=== PATIENT | male | born 2000 | race Caucasian/White ===

== ENCOUNTER 2023-02-26 13:59 | Emergency (ER) | payer MEDICAID, SELFPAY ==
--- NOTE | 2023-02-26 14:07 | XR_ITS ---
PROCEDURE INFORMATION: Exam: XR Left Foot Exam date and time: 02/26/2023 2:09 PM Age: 22 years old Clinical indication: Injury or trauma; Other: Small ladder fell on his foot one week ago; Blunt trauma; Left; Additional info: Pain. Small ladder fell on left foot one week ago. TECHNIQUE: Imaging protocol: Radiologic exam of the left foot. Views: 3 or more views. COMPARISON: No relevant prior studies available. FINDINGS: Bones/joints: No acute fracture or malalignment. Lisfranc joint appears within normal limits in these non-weightbearing radiographs. Soft tissues: Soft tissue edema noted. IMPRESSION: No evidence of acute osseous abnormality in the left foot.
[2023-02-26 14:40] VITALS: BP 144/93; PULSE 101; RESP 18; TEMP 36.7; O2SAT 98; BMI 39.7
--- NOTE | 2023-02-26 15:11 | EXP.UTC ---
Discharge Plan Disposition Patient Disposition: Home, Self-Care Condition: Good Prescriptions Prescriptions: New naproxen 500 mg tablet 500 mg PO BID PRN (Reason: pain) Qty: 10 0RF cephalexin 500 mg tablet 500 mg PO QID 5 Days Qty: 20 0RF No Action montelukast 10 mg tablet 10 mg PO DAILY Patient Comments: TAKE 1 TABLET BY MOUTH EVERY DAY AT NIGHT fluticasone propionate 50 mcg/actuation spray,suspension 2 spray INTRANASAL DAILY Patient Comments: SPRAY 2 SPRAYS INTO INTO EACH NOSTRIL EVERY DAY DIRECTED loratadine 10 mg tablet 10 mg PO DAILY Patient Comments: TAKE 1 TABLET BY MOUTH EVERY DAY buspirone 15 mg tablet 15 mg PO DAILY Patient Comments: TAKE 1 TABLET BY MOUTH TWICE A DAY escitalopram oxalate 10 mg tablet 10 mg PO DAILY Patient Comments: TAKE 1 TABLET BY MOUTH EVERY DAY Referrals Follow up/Referrals: Gavin Nunn [Primary Care Provider] - See instructions Activity Restrictions/Add. Instructions Additional Instructions/Restrictions: Ice to area may help with pain and swelling Follow up with your Family Doctor if no improvement Take medication as prescribed Return if needed Straight to ER if any life threatening symptoms Clinical Impressions Clinical Impression: Foot pain Qualifiers: Laterality: left Qualified Code(s): M79.672 - Pain in left foot Stand Alone Forms Stand Alone Forms: Work/School Release Instructions Patient Instructions: How To Perform RICE (Rest, Ice, Compress, Elevate), Naproxen, Cephalexin Discharge ED Provider: Laura Grande [facility] HPI General Stated complaint: Lt foot pain, swelling, no known accident Mode of Arrival: Ambulatory Source of Information: Patient Limitations: No Limitations Time Seen by Provider: 02/26/23 15:15 Description of Symptoms (Recalled from Triage Doc. by RN): PATIENT C/O PAIN AND SWELLING TO LEFT FOOT X 1 WEEK. NO KNOWN INJURY HEENT Symptoms (Recalled from RN notes): No Resp Symptoms (Recalled from RN notes): No Skin Symptoms (Recalled from RN notes): No MS Symptoms (Recalled from RN notes): Yes Functional Status (Recalled from RN notes): WNL History of Present Illness Provider Complaint: Patient states that he has been having swelling and pain on the top of his left foot around his left great toe and second toe Denies known injury but states that he works at [employer] and always dropping things on his feet States that last night it was more swollen but he put some ice on it and did help a little but today it was looking swollen again so he came in to get it checked Related Data Home Medications Medication Instructions Recorded Confirmed buspirone 15 mg tablet 15 mg PO DAILY Anxiety 02/26/23 02/26/23 escitalopram oxalate 10 mg tablet 10 mg PO DAILY Anxiety 02/26/23 02/26/23 fluticasone propionate 50 2 spray intranasal DAILY Allergy 02/26/23 02/26/23 mcg/actuation nasal Symptoms spray,suspension loratadine 10 mg tablet 10 mg PO DAILY Allergy Symptoms 02/26/23 02/26/23 montelukast 10 mg tablet 10 mg PO DAILY 02/26/23 02/26/23 Previous Rx's Medication Instructions Recorded cephalexin 500 mg tablet 500 mg PO QID 5 days #20 tabs 02/26/23 naproxen 500 mg tablet 500 mg PO BID PRN pain #10 tabs 02/26/23 Allergies Allergy/AdvReac Type Severity Reaction Status Date / Time No Known Allergies Allergy Verified 02/26/23 14:53 Worker's Comp Is this a Worker's Comp case?: No PFSH [facility] Disclaimer: The information contained in this section may have been updated after the patient was seen, as this information can be updated by other users. Medical History (Updated 02/26/23 @ 15:50 by Laura Grande APRN) Anxiety Asthma Depression Social History Smoking Status: Unknown if ever smoked alcohol intake: never current occupational status: employed Travel in the last 8 weeks: None ROS Obtained: Yes All systems reviewed & no additional complaints
[2023-02-26 15:50] VITALS: BP 144/93; PULSE 101; RESP 18; TEMP 36.7; O2SAT 98
== END 2023-02-26 15:55 | disposition home or self-care (01) ==
PROVIDERS: Emergency Provider Nurse Practitioner; PCP Pediatrics
DX: M79.672 Pain in left foot (principal); J45.909 Unspecified asthma, uncomplicated; F41.9 Anxiety disorder, unspecified
CPT/HCPCS: 73630; 99204; 99212; G0463